=== PATIENT | male | born 1930 | race Caucasian/White ===

== ENCOUNTER 2016-10-05 12:27 | Emergency (ER) | payer OTHER ==
--- NOTE | 2016-10-05 12:57 | CPEKG ---
Heart Rate: 61 RR Interval: 984 P-R Interval: 208 QRSD Interval: 94 QT Interval: 440 QTC Interval: 444 P [place]: 44 QRS [place]: -45 T Wave [place]: 46 EKG Severity - ABNORMAL ECG - EKG Impression: SINUS RHYTHM EKG Impression: LEFT ANTERIOR FASCICULAR BLOCK EKG Impression: Similar to previous Electronically Signed By: David Gan 05-Oct-2016 13:07:19
[2016-10-05] MEDS: NS 500 ML IV ONE (13:15)
--- NOTE | 2016-10-05 13:16 | EDPHY ---
General Narrative: CHIEF COMPLAINT: Dizziness, near syncope HISTORY OF PRESENT ILLNESS: Patient was driving today around 12:45 p.m. when he had a sudden onset of dizziness and lightheadedness. Said he felt the short duration of spinning sensation, but mostly he just felt lightheaded and as though he was going to pass out. No chest pain. His spouse was sitting next to him instead he appeared pale. They pulled over and the symptoms resolved over about 30 minutes. No return of the symptoms, but at this time he still feels unsteady on his feet. He has no chest pain or shortness of breath. No abdominal pain. No nausea or vomiting. He does report some diaphoresis during the 1st episode of this. No previous incidents of this. No other associated complaints or modifying factors. REVIEW OF SYSTEMS: Ten systems reviewed and are negative unless otherwise noted in the HPI PERTINENT MEDICAL HISTORY: EXAMINATION General Appearance: Alert, no distress Head: normocephalic, atraumatic Eyes: Pupils equal and round, no conjunctival pallor or injection. EOMs intact. No nystagmus. ENT, Mouth: Mucous membranes moist. Uvula midline. No erythema or edema. Neck: Normal inspection, supple, non-tender. Painless range of motion all planes. No rigidity or meningismus. Respiratory: Lungs are clear to auscultation. No wheezing, rhonchi or crackles. Cardiovascular: Regular rate and rhythm. No murmur. Pulses intact distally Gastrointestinal: Abdomen is soft and nontender. No tympany rigidity. Back: non-tender, no bony abnormalities Neurological: A&O, nonfocal, normal gait. No pronator drift. No dysmetria. Strength is symmetric in all limbs. Sensory intact in all limbs. Skin: Warm and dry, no rash Extremities: Nontender, no pedal edema Psychiatric: Mood and affect normal DIFFERENTIAL DIAGNOSES: Including but not limited to near syncope, vertigo, vertebrobasilar syndrome, dehydration, hypoglycemia, cardiac conduction delay, orthostasis, vasovagal MDM: 1:05 p.m. Sudden onset of dizziness and lightheadedness with near syncope while driving today. Patient did not lose consciousness. They pulled over and his symptoms resolved over approximately 30 minutes. He had some tingling of his feet after that. He still says he feels lightheaded at this time but does not feel that he is spinning. He has not had any chest pain of any kind during this. Vital signs are stable at this time. 2:00 p.m. Patient has ambulated well without any assistance or instability. Vital signs remain normal. His laboratory studies are within normal limits. He is actually feeling better after his IV fluid resuscitation. Upon re-evaluation of his labs , he does have a BUN of 25 with creatinine 1.1. This suggested he may actually have some dehydration. He does feel better after fluid resuscitation I feel he is stable for discharge home. I did offer admission for observation but they are comfortable with being discharged home. I will page the primary care physician to discuss. 2:50 p.m. Discussed the case with the on-call physician for his primary care physician. Dr. Ledbetter informed me that she will have the office set him up with an appointment as soon as possible this week. I do still feel that the patient is stable for discharge home. He will return to the ER for any return of symptoms or any syncope. He is comfortable this plan and discharged home in stable condition. SUPERVISION: This patient was independently evaluated without direct examination by the attending physician. Case was discussed with attending physician. - History Smoking Status: Never smoked - Objective Vital Signs: Initial Vital Signs Temperature (C) 97.9 F 10/05/16 12:30 Heart Rate 67 10/05/16 12:30 Respiratory Rate 18 10/05/16 12:30 Blood Pressure 177/79 H 10/05/16 12:30 O2 Sat (%) 96 10/05/16 12:30 O2 Delivery Mode Room Air Allergies/Adverse Reactions: codeine [Codeine] Allergy (Mild, Verified 10/18/14 12:48) NAUSEA Home Medications: Medication Instructions Recorded Metoprolol Tartrate 25 mg PO BID #60 tablet 10/17/14 Losartan Potassium [Cozaar 50 mg 50 mg PO BID #0 tab 10/21/14 (*)] Laboratory Results: Laboratory Results 10/05/16 13:04 10/05/16 13:04 10/05/16 10/05/16 10/05/16 13:09 13:04 13:04 WBC RBC Hgb POC Hgb 14.6 gm/dL gm/dL (14.5-17.3) Hct POC Hct 43 % % (42.8-50.6) MCV MCH MCHC RDW Plt Count MPV Neut % (Auto) Lymph % (Auto) [place] % (Auto) Eos % (Auto) Baso % (Auto) Nucleat RBC Rel Count Absolute Neuts (auto) Absolute Lymphs (auto) Absolute Monos (auto) Absolute Eos (auto) Absolute Basos (auto) Absolute Nucleated RBC Immature Gran % Immature Gran # PT 13.5 SEC SEC (12.0-15.0) INR 1.04 (0.83-1.16) APTT 34.1 SEC SEC (23.0-38.0) POC Sodium 135 mEq/L mEq/L (134-144) Sodium 134 mEq/L mEq/L (134-144) POC Potassium 4.3 mEq/L mEq/L (3.3-5.0) Potassium 4.6 mEq/L mEq/L (3.5-5.2) POC Chloride 98 mEq/L mEq/L (96-108) Chloride 99 mEq/L mEq/L (97-110) Carbon Dioxide 25 mEq/l mEq/l (22-31) Anion Gap 10 mEq/L mEq/L (8-16) POC BUN 25 mg/dL H mg/dL (7-23) BUN 25 mg/dL H mg/dL (7-23) Creatinine 1.1 mg/dL mg/dL (0.7-1.3) POC Creatinine 1.2 mg/dL mg/dL (0.8-1.5) Estimated GFR > 60 Glucose 93 mg/dL mg/dL (70-100) POC Glucose 98 mg/dL mg/dL (70-100) Calcium 9.6 mg/dL mg/dL (8.5-10.4) Troponin I < 0.012 ng/mL ng/mL (0-0.034) NT-Pro-B Natriuret Pep 124 pg/mL pg/mL (0-450) Lipase 78.0 IU/L IU/L (23-300) 10/05/16 13:04 WBC 7.45 10^3/uL 10^3/uL (3.80-9.50) RBC 4.36 10^6/uL L 10^6/uL (4.40-6.38) Hgb 13.6 g/dL L g/dL (13.7-17.5) POC Hgb Hct 40.6 % % (40.0-51.0) POC Hct MCV 93.1 fL fL (81.5-99.8) MCH 31.2 pg pg (27.9-34.1) MCHC 33.5 g/dL g/dL (32.4-36.7) RDW 13.0 % % (11.5-15.2) Plt Count 177 10^3/uL 10^3/uL (150-400) MPV 8.9 fL fL (8.7-11.7) Neut % (Auto) 74.1 % % (39.3-74.2) Lymph % (Auto) 11.3 % L % (15.0-45.0) [place] % (Auto) 11.5 % % (4.5-13.0) Eos % (Auto) 2.4 % % (0.6-7.6) Baso % (Auto) 0.3 % % (0.3-1.7) Nucleat RBC Rel Count 0.0 % % (0.0-0.2) Absolute Neuts (auto) 5.52 10^3/uL 10^3/uL (1.70-6.50) Absolute Lymphs (auto) 0.84 10^3/uL L 10^3/uL (1.00-3.00) Absolute Monos (auto) 0.86 10^3/uL H 10^3/uL (0.30-0.80) Absolute Eos (auto) 0.18 10^3/uL 10^3/uL (0.03-0.40) Absolute Basos (auto) 0.02 10^3/uL 10^3/uL (0.02-0.10) Absolute Nucleated RBC 0.00 10^3/uL 10^3/uL (0-0.01) Immature Gran % 0.4 % % (0.0-1.1) Immature Gran # 0.03 10^3/uL 10^3/uL (0.00-0.10) PT INR APTT POC Sodium Sodium POC Potassium Potassium POC Chloride Chloride Carbon Dioxide Anion Gap POC BUN BUN Creatinine POC Creatinine Estimated GFR Glucose POC Glucose Calcium Troponin I NT-Pro-B Natriuret Pep Lipase Medications Given: Discontinued Medications Sodium Chloride (Ns) 500 mls @ 0 mls/hr IV ONCE ONE PRN Reason: As Directed Stop: 10/05/16 13:02 Last Admin: 10/05/16 13:15 Dose: 500 mls Point of Care Test Results: 10/05/16 13:09 POC Sodium 135 POC Potassium 4.3 POC Chloride 98 POC BUN 25 H POC Creatinine 1.2 POC Glucose 98 Departure - Departure Disposition: Home, Routine, Self-Care Clinical Impression: Near syncope Condition: Good Instructions: Near Syncope (ED), Dehydration (ED) Additional Instructions: Follow up with primary care physician or 1 of her partners this week. Return to the ER for any return of any of the symptoms he has had today. Increase her water intake this evening. Referrals: Moustapha Toussaint MD [Primary Care Provider] - As per Instructions
[2016-10-05 13:18] LABS: % IMMATURE GRANULYOCYTES 0.4 % (0.0-1.1); ABSOLUTE IMMATURE GRANULOCYTES 0.03 10^3/uL (0.00-0.10); ADD DIFF? NO; ADD MORPH? NO; ADD SCAN? NO; ATYPICAL LYMPHOCYTE FLAG 10 (0-99); FRAGMENT RBC FLAG 0 (0-99); HEMATOCRIT 40.6 % (40.0-51.0); HEMOGLOBIN 13.6 g/dL (13.7-17.5); LEFT SHIFT FLG 0 (0-99); LIPEMIA HEMOLYSIS FLAG 80 (0-99); MEAN CELL HEMOGLOBIN 31.2 pg (27.9-34.1); MEAN CELL HEMOGLOBIN CONCENTR. 33.5 g/dL (32.4-36.7); MEAN CELL VOLUME 93.1 fL (81.5-99.8); MEAN PLATELET VOLUME 8.9 fL (8.7-11.7); PLATELET CLUMPS FLAG 0 (0-99); PLATELET COUNT 177 10^3/uL (150-400); RED BLOOD CELL COUNT 4.36 10^6/uL (4.40-6.38)
[2016-10-05 13:36] LABS: INR 1.04 (0.83-1.16); PROTIME(PATIENT) 13.5 SEC (12.0-15.0)
[2016-10-05 13:37] LABS: APTT 34.1 SEC (23.0-38.0)
[2016-10-05 13:39] LABS: ANION GAP 10 mEq/L (8-16); CALCIUM 9.6 mg/dL (8.5-10.4); CARBON DIOXIDE 25 mEq/l (22-31); CHLORIDE 99 mEq/L (97-110); CREATININE 1.1 mg/dL (0.7-1.3); GLOMERULAR FILTRATION RATE > 60; GLUCOSE 93 mg/dL (70-100); POTASSIUM 4.6 mEq/L (3.5-5.2); SODIUM 134 mEq/L (134-144)
[2016-10-05 13:52] LABS: TROPONIN I < 0.012 ng/mL (0-0.034)
[2016-10-05 15:03] VITALS: BP 142/66; PULSE 57; RESP 16; TEMP 98.6; O2SAT 98
== END 2016-10-05 14:59 | disposition home or self-care (01) ==
DX: R55 Syncope and collapse (principal)
CPT/HCPCS: 82947-QW

== ENCOUNTER → 2017-08-06 | Outpatient (CLI) | payer OTHER ==
[~2017-08-06] MED LIST: LIDOCAINE 1% 300 MG/30 ML SDV ONE
== END ==
LOC: FIMAGING 11:01
PROVIDERS: ATTEND Internal Medicine Hematology & Oncology
PROC: 07B53ZX Excision of Right Axillary Lymphatic, Percutaneous Approach, Diagnostic (ICD-10-PCS; principal; 2017-08-06)
DX: C82.04 Follicular lymphoma grade I, lymph nodes of axilla and upper limb (principal)
CPT/HCPCS: 88184-90; 88185-91

== ENCOUNTER 2018-08-09 09:39 | Day surgery (SDC) | payer OTHER ==
--- NOTE | 2018-08-09 09:01 | PDHPUP ---
History & Physical Update H&P update statement: This history and physical update is based on an assessment of the patient which was completed after admission or registration (within 24 hours), but prior to the surgery/procedure. H&P update: H&P reviewed & patient examined, no change in patient's condition since H&P completed
[2018-08-09] MEDS ORDERED: ceFAZolin 2 GM/DEXTROSE 100 ML IV ONE (10:06)
[2018-08-09] MEDS ORDERED: LR 1,000 ML IV ONE (10:07)
[2018-08-09] MEDS ORDERED: BUPIVACAINE 0.5% 30 ML SDV ONE (10:31)
[2018-08-09] MEDS ORDERED: fentaNYL 100 MCG/2 ML INJ ONE (11:40)
[2018-08-09] MEDS ORDERED: PROPOFOL 200 MG/20 ML VIAL ONE (11:40)
--- NOTE | 2018-08-09 11:45 | PDANEPAE ---
ANE Past Medical History - Cardiovascular History Hx Hypertension: Yes Hx Arrhythmias: No Hx Chest Pain: No Hx Coronary Artery / Peripheral Vascular Disease: No Hx CHF / Valvular Disease: No Hx Palpitations: No Cardiovascular History Comment: pcp monitors bp medications - Pulmonary History Hx COPD: No Hx Asthma/Reactive Airway Disease: No Hx Recent Upper Respiratory Infection: No Hx Oxygen in Use at Home: No Hx Sleep Apnea: No Sleep Apnea Screening Result - Last Documented: Positive - Neurologic History Hx Cerebrovascular Accident: No Hx Seizures: No Hx Dementia: No - Endocrine History Hx Diabetes: No Obesity: no - Renal History Hx Renal Disorders: Yes Renal History Comment: hx of bladder ca- has been clear for about 5.5 yrs. hx of TURBT - Liver History Hx Hepatic Disorders: No - Neurological & Psychiatric Hx Hx Neurological and Psychiatric Disorders: No - Cancer History Hx Cancer: Yes Cancer History Comment: bladder ca. 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 spots where skin ca has been removed - Chronic Pain History Chronic Pain: No - Surgical History Prior Surgeries: 05/2018 removal of cancerous growth in left eye. 05/05/12 cystoscopy and TURBT with [facility]. 2004 radioactive seeds implanted in prostate. tonsillectomy ANE Review of Systems Review of Systems: - Exercise capacity METS (RN): 4 METS ANE Patient History - Allergies Allergies/Adverse Reactions: codeine [Codeine] Allergy (Verified 08/08/18 16:45) upsets stomach at times - Home Medications Home medications: home medication list seen and reviewed Home Medications: Herbals/Supplements -Info Only 08/08/18 [Last Taken 08/08/18] Metoprolol Tartrate 08/08/18 [Last Taken 08/09/18 07:30] - NPO status NPO Status: no food or drink >8 hours NPO Since - Liquids (Date): 08/09/18 NPO Since - Liquids (Time): 08:15 NPO Since - Solids (Date): 08/08/18 NPO Since - Solids (Time): 19:30 - Anes Hx Anes Hx: post operative nausea - Smoking Hx Smoking Status: Never smoked - Family Anes Hx Family Hx Anesthesia Complications: none ANE Labs/Vital Signs - Vital Signs Blood Pressure: 198/90 Heart Rate: 56 Respiratory Rate: 18 O2 Sat (%): 99 Height: 177.8 cm Weight: 58.06 kg ANE Physical Exam - Airway Neck exam: FROM Mallampati Score: Class 2 Mouth exam: normal dental/mouth exam - Pulmonary Pulmonary: no respiratory distress, no rales or rhonchi, clear to auscultation - Cardiovascular Cardiovascular: regular rate and rhythym, no murmur, rub, or gallop - ASA Status ASA Status: II ANE Anesthesia Plan Anesthesia Plan: MAC
[2018-08-09] MEDS ORDERED: NALOXONE HCL 0.4 MG/ML INJ IVP PRN (11:48)
[2018-08-09] MEDS ORDERED: HYDROCODONE/APAP 5/325 TAB PO PRN (11:48)
[2018-08-09] MEDS ORDERED: ACETAMINOPHEN 500 MG TAB PO PRN (11:48)
[2018-08-09] MEDS ORDERED: LABETALOL HCL 5 MG/ML 20 ML MDV IVP PRN (11:48)
[2018-08-09] MEDS ORDERED: BUPIVACAINE/EPI 0.5% 30 ML SDV ONE (11:48)
[2018-08-09] MEDS ORDERED: PROMETHAZINE HCL 25 MG/ML INJ IVP PRN (11:48)
[2018-08-09] MEDS ORDERED: LR 500 ML IV PRN (11:48)
[2018-08-09] MEDS ORDERED: fentaNYL 100 MCG/2 ML INJ IVP PRN (11:48)
[2018-08-09] MEDS ORDERED: ONDANSETRON 4 MG/2 ML VIAL IVP PRN (11:48)
--- NOTE | 2018-08-09 12:19 | POSTOPPROG ---
Post Op Note Date of Operation: 08/09/18 Surgeon: Mikey Felipe Anesthesiologist: Justice Anesthesia: IV Sedation Pre-op Diagnosis: L axillary adepathy Post-op Diagnosis: keena Procedure: Excisional L axillary LN biopsy Findings: mass c/2 PET successfully resected Inf/Abcess present in the surg proc area at time of surgery?: No EBL: Minimal Specimen(s): L axillary LN c surroundig tissue
--- NOTE | 2018-08-09 12:23 | POSTANESTH ---
Post Anesthetic Evaluation Cardiovascular Status: Normal, Stable Respiratory Status: Normal, Stable, Similar to Pre-op Cond. Level of Consciousness/Mental Status: Can Participate in Eval, Alert and Oriented Pain Control: Adequate, Prn Tx Ordered Nausea/Vomiting Control: Adequate, Prn Tx Ordered Complications Possibly Related to Anesthesia: None Noted
[2018-08-09 13:50] VITALS: BP 164/68
--- NOTE | 2018-08-12 09:35 | GOP ---
[f rep st] OPERATIVE REPORT DATE OF OPERATION: 08/09/2018 SURGEON: Mikey Felipe MD COOK FAST FOOD: None. ANESTHESIA: Local with MAC. ANESTHESIOLOGIST: Jorge Rucker MD. PREOPERATIVE DIAGNOSIS: Left axillary adenopathy. POSTOPERATIVE DIAGNOSIS: Left axillary adenopathy. PROCEDURE PERFORMED: Excisional left axillary lymph node biopsy. FINDINGS: Mass consistent with the PET scan was successfully resected. It did appear to be an abnor mal looking lymph node. SPECIMENS: Axillary lymph node. ESTIMATED BLOOD LOSS: 5 cc. DESCRIPTION OF PROCEDURE: The patient was greeted in the preoperative suite. Once again, risks, yovani efits, and alternatives were discussed. Consent was signed. He was then brought back to the operati ve suite, placed on the OR table in supine position. After all anesthesia machines including SCDs we re on and functioning, World [employer] Organization time-out was performed. After successful induction of general anesthesia, the patient's left axilla was prepped and draped in typical sterile fashion. I could successfully palpate this at the inferior border of the axilla. I subsequently made a 3 cm i ncision through the skin and carried this down through the subcutaneous tissue. I could palpate the mass. I successfully dissected it off the surrounding tissue, taking care not to injure any surround ing nerves, which I did not identify any. The mass was successfully grasped with an Allis clamp and successfully clipped and removed sharply. It was passed off. I then palpated the area and felt no o ther suspicious surrounding tissue. I did end up taking an inferior portion of tissue which was fatmata cent to the mass as it felt as though it had a lymph node in it as well. Hemostasis was achieved wit h gentle pressure. I infiltrated the skin with local anesthesia. It was then closed in layers, firs t with interrupted 3-0 Vicryl followed by 4-0 Monocryl over which Dermabond was placed. The patient was then gently awoken and taken to the PACU in satisfactory condition. DRAINS: None. COUNTS: All counts were reported as correct x2. /[id number]/MODL
== END 2018-08-09 13:40 | disposition home or self-care (01) ==
LOC: FSGY 09:39
PROVIDERS: ATTEND Surgery
PROC: 07B60ZX Excision of Left Axillary Lymphatic, Open Approach, Diagnostic (ICD-10-PCS; principal; 2018-08-09 11:30)
DX: R59.0 Localized enlarged lymph nodes (principal); I10 Essential (primary) hypertension; Z85.51 Personal history of malignant neoplasm of bladder
CPT/HCPCS: J0690; J2704; J3010

== ENCOUNTER 2018-08-23 05:42 | Day surgery (SDC) | payer OTHER ==
[2018-08-23] MEDS ORDERED: LIDOCAINE 1% 2 ML INJ ID PRN (06:20)
[2018-08-23] MEDS ORDERED: LR 1,000 ML IV ONE (06:20)
[2018-08-23] MEDS ORDERED: ceFAZolin 2 GM/DEXTROSE 100 ML IV ONE (06:48)
[2018-08-23] MEDS ORDERED: BUPIVACAINE 0.25% 30 ML SDV ONE ×2 (06:50→07:18)
[2018-08-23] MEDS ORDERED: EPINEPHrine 1 MG/ML INJ ONE (06:50)
--- NOTE | 2018-08-23 06:58 | PDANEPAE ---
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 ANE Past Medical History - Cardiovascular History Hx Hypertension: Yes Hx Arrhythmias: No Hx Chest Pain: No Hx Coronary Artery / Peripheral Vascular Disease: No Hx CHF / Valvular Disease: No Hx Palpitations: No Cardiovascular History Comment: pcp monitors bp medications - Pulmonary History Hx COPD: No Hx Asthma/Reactive Airway Disease: No Hx Recent Upper Respiratory Infection: No Hx Oxygen in Use at Home: No Hx Sleep Apnea: No Sleep Apnea Screening Result - Last Documented: Positive Pulmonary History Comment: jeanette triggers - Neurologic History Hx Cerebrovascular Accident: No Hx Seizures: No Hx Dementia: No - Endocrine History Hx Diabetes: No - Renal History Hx Renal Disorders: Yes Renal History Comment: hx of bladder ca- has been clear for about 5.5 yrs. hx of TURBT - Liver History Hx Hepatic Disorders: No - Neurological & Psychiatric Hx Hx Neurological and Psychiatric Disorders: No - Cancer History Hx Cancer: Yes Cancer History Comment: bladder ca. 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 wears glasses. spots where skin ca has been removed - Chronic Pain History Chronic Pain: No - Surgical History Prior Surgeries: 08/09/18 left axillary lymph node biopsy with Matte[facility]. 2017 removal of cancerous growth in left eye. 05/05/12 cystoscopy and TURBT with [facility]. 2004 radioactive seeds implanted in prostate. tonsillectomy ANE Review of Systems Review of systems is: negative Review of Systems: - Exercise capacity METS (RN): 4 METS ANE Patient History - Allergies Allergies/Adverse Reactions: codeine [Codeine] Allergy (Verified 08/22/18 15:30) upsets stomach at times - Home Medications Home medications: home medication list seen and reviewed Home Medications: Herbals/Supplements -Info Only 08/08/18 [Last Taken 08/16/18] Metoprolol Tartrate 08/08/18 [Last Taken 08/23/18 03:30] - NPO status NPO Status: no food or drink >8 hours NPO Since - Liquids (Date): 08/23/18 NPO Since - Liquids (Time): 03:30 NPO Since - Solids (Date): 08/22/18 NPO Since - Solids (Time): 20:00 - Anes Hx Anes Hx: no prior problems - Smoking Hx Smoking Status: Never smoked - Alcohol Use Alcohol Use: Other (1/day) - Family Anes Hx Family Hx Anesthesia Complications: none ANE Labs/Vital Signs - Vital Signs Blood Pressure: 182/81 Heart Rate: 56 Respiratory Rate: 16 O2 Sat (%): 98 Height: 177.8 cm Weight: 58.06 kg ANE Physical Exam - Airway Neck exam: FROM Mallampati Score: Class 1 Mouth exam: normal dental/mouth exam - Pulmonary Pulmonary: no respiratory distress - Cardiovascular Cardiovascular: regular rate and rhythym - ASA Status ASA Status: III ANE Anesthesia Plan Anesthesia Plan: MAC
[2018-08-23] MEDS ORDERED: PROPOFOL/EMULSION 500 MG/50 ML BOTTLE IV ONE (07:09)
[2018-08-23] MEDS ORDERED: fentaNYL 100 MCG/2 ML INJ ONE (07:09)
[2018-08-23] MEDS ORDERED: LIDOCAINE 1% 300 MG/30 ML SDV ONE (07:09)
--- NOTE | 2018-08-23 08:02 | POSTOPPROG ---
Post Op Note Date of Operation: 08/23/18 Surgeon: Mikey Felipe Anesthesiologist: Bartolo Anesthesia: IV Sedation Pre-op Diagnosis: Lyphoma Post-op Diagnosis: same Procedure: US guided R IJ port placemet f fluoro Findings: successful flush/withdraw Inf/Abcess present in the surg proc area at time of surgery?: No EBL: Minimal
--- NOTE | 2018-08-23 08:07 | POSTANESTH ---
Post Anesthetic Evaluation Cardiovascular Status: Normal, Stable Respiratory Status: Normal, Stable Level of Consciousness/Mental Status: Can Participate in Eval, Mildly Sleepy, Arousable Pain Control: Adequate, Prn Tx Ordered Nausea/Vomiting Control: Adequate, Prn Tx Ordered Complications Possibly Related to Anesthesia: None Noted
[2018-08-23] MEDS ORDERED: ONDANSETRON 4 MG/2 ML VIAL IVP PRN (08:08)
[2018-08-23] MEDS ORDERED: PROMETHAZINE HCL 25 MG/ML INJ IVP PRN (08:08)
[2018-08-23] MEDS ORDERED: NALOXONE HCL 0.4 MG/ML INJ IVP PRN (08:08)
[2018-08-23] MEDS ORDERED: fentaNYL 100 MCG/2 ML INJ IVP PRN (08:08)
[2018-08-23 09:36] VITALS: BP 172/84
== END 2018-08-23 10:07 | disposition home or self-care (01) ==
LOC: FSGY 05:42
PROVIDERS: ATTEND Surgery
PROC: B5181ZA Fluoroscopy of Superior Vena Cava using Low Osmolar Contrast, Guidance (ICD-10-PCS; 2018-08-23)
PROC: 02HV33Z Insertion of Infusion Device into Superior Vena Cava, Percutaneous Approach (ICD-10-PCS; principal; 2018-08-23 07:15)
PROC: 0JH60XZ Insertion of Tunneled Vascular Access Device into Chest Subcutaneous Tissue and Fascia, Open Approach (ICD-10-PCS; principal; 2018-08-23 07:15)
DX: C83.04 Small cell B-cell lymphoma, lymph nodes of axilla and upper limb (principal); I10 Essential (primary) hypertension; Z85.51 Personal history of malignant neoplasm of bladder
CPT/HCPCS: C1788; J0171; J0690; J1642; J2704; J3010